=== PATIENT | male | born 1980 | race Caucasian/White ===

== ENCOUNTER 2021-01-08 16:06 | Emergency (ER) | payer BC ==
[~2021-01-08] VITALS: Ht 182.9 cm; Wt 91.0 kg
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
[2021-01-08] MEDS ORDERED: MORPHINE SULFATE 2 MG/ML VIAL. IV PRN (16:30)
[2021-01-08] MEDS ORDERED: ONDANSETRON PF 4 MG/2 ML VIAL. IV ONE (16:30)
[2021-01-08] MEDS ORDERED: IV NORMAL SALINE 1000ML BAG 1,000 ML IV ONE (16:30)
[2021-01-08 16:46] LABS: CALCIUM 9.7 mg/dL (8.5-10.1); GFR 83.6; POTASSIUM 4.1 mmol/L (3.5-5.1)
--- NOTE | 2021-01-08 16:47 | RAD ---
ADDENDUM #1 Addendum: Note is made that the aforementioned asymmetric blood flow within the testes demonstrated o n the submitted images was not seen with real-time imaging. The blood flow is symmetric. There are no convincing sonographic findings to suggest orchitis. Electronically signed by: Kate Gilmore MD (01/08/2021 5:05 PM) [id number] ORIGINAL REPORT EXAM: Lee scale and color Doppler scrotal sonogram. HISTORY: Pain. TECHNIQUE: Lee scale and color Doppler sonographic imaging of the scrotum with spectral analysis was performed. COMPARISON: None. FINDINGS: The testes are normal in size. No focal testicular parenchymal lesion is seen. There is sli ght asymmetry in right greater than left testicular blood flow on multiple images. There is a 6 mm ri ght epididymal head cyst. There are small bilateral hydroceles. There is no varicocele. IMPRESSION: 1. Slight asymmetric blood flow within the right greater than left testes. This may be due to imaging technique. There is no corresponding parenchymal abnormality to suggest orchitis. However, given a h istory of testicular pain, this is not clearly excluded. 2. Small right epididymal cyst. 3. Small bilateral hydroceles. Electronically signed by: Kate Gilmore MD (01/08/2021 4:44 PM) [id number]
[2021-01-08 16:53] LABS: ALBUMIN 4.5 g/dL (3.4-5.0); ALBUMIN/GLOBULIN RATIO 1.2 (1.0-1.7); TOTAL BILIRUBIN 0.8 mg/dL (0.2-1.0); TOTAL PROTEIN 8.2 g/dL (6.4-8.2)
[2021-01-08 17:07] LABS: BASO % 0 % (0-3); EOS % 0 % (0-3); HEMATOCRIT 43.8 % (39.0-53.0); HEMOGLOBIN 15.1 g/dL (13.0-17.5); LYMPH # 0.9 x10^3/uL (1.0-4.8); LYMPH % 11 % (24-48); MEAN CORPUSCULAR HEMOGLOBIN 33 pg (25-35); MEAN CORPUSCULAR HGB CONC 34 g/dL (31-37); MEAN CORPUSCULAR VOLUME 95 fL (79-100); MONO # 0.3 x10^3/uL (0.0-1.1); MONO % 4 % (0-9); NEUT % 85 % (31-73); PLATELET COUNT 249 x10^3/uL (140-400); RED BLOOD COUNT 4.64 x10^6/uL (4.30-5.70); RED CELL DISTRIBUTION WIDTH 13.3 % (11.5-14.5); WHITE BLOOD COUNT 8.2 x10^3/uL (4.0-11.0)
[2021-01-08 17:07] LABS: BILIRUBIN,URINE NEGATIVE (NEG); CLARITY,URINE TURBID; COLOR,URINE YELLOW; NITRITE,URINE NEGATIVE (NEG); PROTEIN,URINE NEGATIVE (NEG-TRACE); UROBILINOGEN,URINE 0.2 mg/dL (0.2 mg/dL)
[2021-01-08] MEDS ORDERED: cefTRIAXone IV Push 1 GM VIAL. IVP ONE (17:15)
[2021-01-08 17:21] LABS: AMORPHOUS SEDIMENT,UR PRESENT /HPF; BACTERIA,URINE 0 /HPF (0-FEW); RBC,URINE 0 /HPF (0-2); WBC,URINE OCC /HPF (0-4)
[2021-01-08] MEDS ORDERED: DOXY100C14 PO (17:22)
[2021-01-08] MEDS ORDERED: HYDR-2761 PO (17:22)
[2021-01-08] MEDS: HYDROmorphone 2 MG/ML VIAL IV PRN ×3 (17:43→19:21)
[2021-01-08] MEDS ORDERED: HYDROmorphone 2 MG/ML VIAL IVP ONE (19:45)
[2021-01-08 20:13] VITALS: BP 148/78
[2021-01-09] MEDS ORDERED: HYDR-2761 PO (02:12)
[2021-01-09] MEDS ORDERED: KETO10TA PO (02:12)
== END 2021-01-08 20:20 | disposition home or self-care (01) ==
LOC: ER 16:06
DX: N50.811 Right testicular pain (principal); R11.2 Nausea with vomiting, unspecified; Z95.0 Presence of cardiac pacemaker; Z98.890 Other specified postprocedural states
CPT/HCPCS: 36415; 76870; 80053; 81001; 85025; 96361; 96374; 96375; 96376; 99285; J0696; J1170; J2270; J2405; J7030

== ENCOUNTER 2021-01-09 01:25 | Emergency (ER) | payer BC ==
[~2021-01-09] VITALS: Ht 182.9 cm; Wt 90.1 kg
[~2021-01-09 01:25] MED LIST: DOXY100C14 PO; HYDR-2761 PO
[2021-01-09] MEDS ORDERED: HYDR-2761 PO (02:12)
[2021-01-09] MEDS ORDERED: KETO10TA PO (02:12)
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
[2021-01-09] MEDS: oxyCODONE/APAP 7.5/325 1 TAB TABLET PO ONE (02:23)
[2021-01-09] MEDS: IBUPROFEN 400 MG TABLET. PO ONE (02:23)
[2021-01-09] MEDS: ONDANSETRON ODT 4 MG TAB.RAPDIS. PO ONE (02:23)
[2021-01-09 02:26] VITALS: BP 161/100
== END 2021-01-09 02:28 | disposition home or self-care (01) ==
LOC: ER 01:25
DX: N50.811 Right testicular pain (principal); Z95.0 Presence of cardiac pacemaker; Z88.2 Allergy status to sulfonamides
CPT/HCPCS: 99284